=== PATIENT | male | born 1950 | race Two or more races ===

== ENCOUNTER → 2021-03-26 06:14 | Outpatient (CLI) | payer OTHER | END | disposition home or self-care (01) | LOC: LAB 06:14 | PROVIDERS: ATTEND Surgery | DX: R07.89 Other chest pain (principal); Z01.811 Encounter for preprocedural respiratory examination; Z01.812 Encounter for preprocedural laboratory examination; K43.6 Other and unspecified ventral hernia with obstruction, without gangrene ==

== ENCOUNTER 2021-04-02 05:40 | Day surgery (SDC) | payer OTHER | END 2021-04-02 11:50 | disposition home or self-care (01) | LOC: CIR.AMB 05:40 | PROVIDERS: ATTEND Surgery | DX: K43.6 Other and unspecified ventral hernia with obstruction, without gangrene (principal) ==